=== PATIENT | female | born 1965 | race Hispanic/Latino ===

== ENCOUNTER → 2017-12-08 | Outpatient (CLI) | payer BC | END | disposition home or self-care (01) | LOC: RAH 16:00 | PROVIDERS: ATTEND Family Medicine | DX: Z12.31 Encounter for screening mammogram for malignant neoplasm of breast (principal) | CPT/HCPCS: 77067 ==

== ENCOUNTER → 2021-05-22 | Outpatient (CLI) | payer OTHER | END | disposition home or self-care (01) | LOC: RAH 10:52 | PROVIDERS: ATTEND Family Medicine | DX: R07.81 Pleurodynia (principal) | CPT/HCPCS: 71046; 71100 ==